=== PATIENT | female | born 1995 | race African-American/Black ===

== ENCOUNTER 2016-08-01 13:47 | Outpatient (CLI) | END 2016-08-01 13:48 | disposition home or self-care (01) | LOC: LAB 13:47 | PROVIDERS: ATTEND Nurse Practitioner Family | DX: R13.10 Dysphagia, unspecified (principal) | CPT/HCPCS: 87651; 87880 ==

== ENCOUNTER 2016-10-04 10:17 | Outpatient (CLI) | END 2016-10-04 10:18 | disposition home or self-care (01) | LOC: LAB 10:17 | PROVIDERS: ATTEND Nurse Practitioner Family | DX: R11.2 Nausea with vomiting, unspecified (principal); R52 Pain, unspecified ==

== ENCOUNTER 2017-02-10 04:35 | Emergency (ER) ==
[2017-02-10 04:49] VITALS: BP 104/66; TEMP 99.3; BMI 23.6
--- NOTE | 2017-02-10 05:38 | DI ---
EXAM: Right ankle, three views, 02/10/2017 HISTORY: Trauma COMPARISON: None. FINDINGS / IMPRESSION: The visualized osseous structures appear intact. Anatomic alignment appears within normal limits. There is no evidence of fracture or dislocation. No acute osseous abnormality.
[2017-02-10] MEDS ORDERED: NORCO 7.5-325 PO STA (05:42)
--- NOTE | 2017-02-10 05:57 | ED.PDOC ---
General ED Provider: Dr. SUNITHA FIELDS-ER Chief Complaint: Ankle Pain/Injury Stated Complaint: i tripped over boots and hurt my ankle Time Seen by Physician: 04:45 Mode of Arrival: Wheelchair Information Source: Patient, Family Exam Limitations: No limitations Nursing and Triage Documentation Reviewed and Agree: Yes Musculoskeletal Complaint Exam - Ankle/Foot Complaint/Exam Location of Injury: Reports: Right, Ankle Mechanism of Injury: Reports: Trauma Onset/Duration: 30 min Symptoms Are: Reports: Still present Onset of Pain: Reports: Immediate Initial Severity: Mild Current Severity: Moderate Location: Reports: Discrete Character: Reports: Dull, Aching, Throbbing, Spasmodic, Stiffness Alleviating: Reports: Rest Aggravating: Reports: Movement, Weight bearing, Prolonged standing Able to Bear Weight: No Associated Signs and Symptoms: Reports: Swelling, Bruising Gout Risk Factors: Reports: None Related Surgical History: Reports: None Lower Extremity Findings: Present: Swelling, Ecchymosis, Tenderness, Limited range of motion Achilles Tendon Abnormality: No Tenderness: Present: Lateral malleolus Limited Range of Motion: Present: Inversion, Eversion, Dorsiflexion Differential Diagnosis: Closed Fracture, Sprain, Strain Review of Systems - Review Of Systems Constitutional: Reports: No symptoms Eyes: Reports: No symptoms Ears, Nose, Mouth, Throat: Reports: No symptoms Respiratory: Reports: No symptoms Cardiac: Reports: No symptoms GI: Reports: No symptoms : Reports: No symptoms Musculoskeletal: Reports: Joint pain, Joint swelling, Muscle pain Skin: Reports: No symptoms Neurological: Reports: No symptoms Endocrine: Reports: No symptoms Hematologic/Lymphatic: Reports: No symptoms All Other Systems: Reviewed and Negative Past Medical History - Past Medical History Previously Healthy: Yes Endocrine: Reports: Unknown Cardiovascular: Reports: Unknown Respiratory: Reports: Unknown Hematological: Reports: Unknown Gastrointestinal: Reports: Unknown Genitourinary: Reports: Unknown Neuro/Psych: Reports: Unknown Musculoskeletal: Reports: Unknown Cancer: Reports: Unknown Last Menstrual Period: now - Surgical History General Surgical History: Reports: Unknown - Family History Family History: Reports: Unknown - Social History Smoking Status: Never smoker, Chews tobacco Hx Substance Use: No Alcohol Screening: None Lives: With family - Immunizations Tetanus Shot up to Date: Yes Physical Exam - Physical Exam Appearance: Well-appearing, No pain distress, Well-nourished Pain Distress: Moderate Eyes: JILLIAN, EOMI, Conjunctiva clear ENT: Ears normal, Nose normal, Oropharynx normal Neck: Supple Respiratory: Airway patent, Breath sounds clear, Breath sounds equal, Respirations nonlabored Cardiovascular: RRR, Pulses normal, No rub, No murmur GI/: Soft, Nontender, No masses, Bowel sounds normal, No Organomegaly Musculoskeletal: Limited ROM Skin: Warm, Dry, Normal color Neurological: Sensation intact, Motor intact, Reflexes intact, Cranial nerves intact, Alert, Oriented Psychiatric: Affect appropriate, Mood appropriate Interpretation - Radiology Interpretation Radiology Interpretation By: Radiologist Radiology Results: Negative Critical Care Note - Critical Care Note Total Time (mins): 0 Course - Course Orders, Labs, Meds: Orders Category Date Time Status Air cast [ED SPLINT APPLICATION] .ONCE EMERGENCY 02/10/17 05:43 Active CRUTCHES [ED CRUTCHES] .ONCE EMERGENCY 02/10/17 05:43 Active ED TRISH WRAP .ONCE EMERGENCY 02/10/17 05:43 Active Hydrocodone Bit/Acetaminophen [[place] 7.5-325] MEDS 02/10/17 05:42 Discontinued 1 tab PO ONCE STA ANKLE, RIGHT MIN 3 VIEWS Stat RADS 02/10/17 04:57 Completed Medications Discontinued Medications Generic Name Dose Route Start Last Admin Trade Name Freq PRN Reason Stop Dose Admin Acetaminophen/Hydrocodone Bitart 1 tab 02/10/17 05:42 02/10/17 05:50 [place] 7.5-325 PO 02/10/17 05:43 1 tab ONCE STA Administration Vital Signs: Temp Pulse Resp BP Pulse Ox 02/10/17 04:36 99.3 F 95 H 22 104/66 98 Departure - Departure Time of Disposition: 06:00 Disposition: HOME SELF-CARE Discharge Problem: Ankle pain Instructions: Ankle Sprain (ED) Condition: Good Pt referred to PMD for follow-up: Yes Additional Instructions: stay with crutches..nonweightbearing...stay in splint--off work 2 days--norco 5mg q 6hrs prn pain #12--ice for 24hrs--f/u with pcp in one week Allergies/Adverse Reactions: Allergies No Known Allergies Allergy (Unverified 02/10/17 04:45) Home Medications: Ambulatory Orders 1 [No Reported Medications] 02/10/17 Disposition Discussed With: Patient, Family
== END 2017-02-10 06:10 | disposition home or self-care (01) ==
LOC: ED 04:35
DX: M25.571 Pain in right ankle and joints of right foot (principal); W18.40XA Slipping, tripping and stumbling without falling, unspecified, initial encounter; F17.220 Nicotine dependence, chewing tobacco, uncomplicated
CPT/HCPCS: 99283

== ENCOUNTER 2017-02-17 12:08 | Outpatient (CLI) ==
--- NOTE | 2017-02-17 13:33 | DI ---
Exam: Three x-rays of the right ankle. Comparison: 02/10/2017. Reason for exam: Pain in right ankle. FINDINGS: No acute fracture or dislocation. The talar dome is intact. There is no widening of the medial or lateral clear spaces. No unexplained calcific soft tissue density or radiopaque retained f oreign body. Impression: No acute fracture or dislocation in the right ankle
--- NOTE | 2017-02-17 13:37 | DI ---
Exam: Three x-rays of the right foot. Comparison: Ankle x-ray performed 02/10/2017. Reason for exam: Fall. FINDINGS: No acute fracture or malalignment. The joint spaces are well maintained. The cortices ar e intact. No unexplained calcific soft tissue densities or radiopaque retained foreign bodies. Impression: No acute fracture or malalignment in the right foot
== END 2017-02-17 12:09 | disposition home or self-care (01) ==
LOC: RAD 12:08
PROVIDERS: ATTEND Nurse Practitioner Family
DX: M25.571 Pain in right ankle and joints of right foot (principal); S99.911S Unspecified injury of right ankle, sequela; M79.671 Pain in right foot; S99.921S Unspecified injury of right foot, sequela

== ENCOUNTER 2017-05-23 16:22 | Outpatient (CLI) | END 2017-05-23 16:23 | disposition home or self-care (01) | LOC: LAB 16:22 | PROVIDERS: ATTEND Nurse Practitioner Family | DX: R05 Cough (principal) | CPT/HCPCS: 87502; 87651 ==

== ENCOUNTER 2017-07-23 16:31 | Outpatient (CLI) | END 2017-07-23 16:32 | disposition home or self-care (01) | LOC: FCC-LAB 16:31 | PROVIDERS: ATTEND Nurse Practitioner Family | DX: D64.9 Anemia, unspecified (principal); J18.9 Pneumonia, unspecified organism | CPT/HCPCS: 36415; 80053; 85025 ==

== ENCOUNTER 2017-07-30 13:47 | Outpatient (CLI) | END 2017-07-30 13:48 | disposition home or self-care (01) | LOC: AMBL 13:47 | PROVIDERS: ATTEND Internal Medicine | DX: O26.852 Spotting complicating pregnancy, second trimester (principal); Z3A.20 20 weeks gestation of pregnancy; R10.30 Lower abdominal pain, unspecified ==

== ENCOUNTER 2018-03-11 16:00 | Outpatient (CLI) ==
--- NOTE | 2018-03-12 09:40 | DI ---
Exam: Chest two-view HISTORY: Hemoptysis. Comparison: 02/04/2010. FINDINGS: Two PA views and a lateral view of the chest demonstrate moderately expanded lungs with no evidence of pneumonia or edema. The heart is normal in size and configuration. The pulmonary vascu lature is not congested. The skeletal structures are intact. IMPRESSION: No acute cardiopulmonary disease.
== END 2018-03-11 16:01 | disposition home or self-care (01) ==
LOC: RAD 16:00
PROVIDERS: ATTEND Nurse Practitioner Family
DX: R04.2 Hemoptysis (principal); J02.9 Acute pharyngitis, unspecified
CPT/HCPCS: 87651

== ENCOUNTER 2018-07-02 22:42 | Emergency (ER) ==
[2018-07-02] MEDS ORDERED: DEMEROL 50 MG/ML VIAL ONE (23:05)
[2018-07-03 01:54] VITALS: BP 120/78
--- NOTE | 2018-07-03 02:06 | ED.PDOC ---
General ED Provider: Dr. CARLOS ROBERTS Chief Complaint: Ankle Pain/Injury Stated Complaint: Patient states she twisted her right ankle and lower leg heard a POP now unable to bear weight. States that the pain is severe. Time Seen by Physician: 23:45 Exam Limitations: No limitations Primary Care Provider: SHALA BENTON Nursing and Triage Documentation Reviewed and Agree: Yes Does patient meet sepsis criteria?: No System Inflammatory Response Syndrome: Not Applicable Sepsis Protocol: For patient's 13 years and over: Temp is 96.8 and below OR 101 and greater Pulse >90 BPM Resp >20/minute Acutely Altered Mental Status Are patient's symptoms suggestive of a new infection, such as: -Pneumonia -Skin, Soft Tissue -Endocarditis -UTI -Bone, Joint Infection -Implantable Device -Acute Abdominal Infection -Wound Infection -Meningitis -Blood Stream Catheter Infection -Unknown Review of Systems - Review Of Systems Constitutional: Reports: No symptoms Eyes: Reports: No symptoms Ears, Nose, Mouth, Throat: Reports: No symptoms Respiratory: Reports: No symptoms Cardiac: Reports: No symptoms GI: Reports: No symptoms : Reports: No symptoms Musculoskeletal: Reports: Joint pain Skin: Reports: No symptoms Neurological: Reports: No symptoms Endocrine: Reports: No symptoms Hematologic/Lymphatic: Reports: No symptoms All Other Systems: Reviewed and Negative Past Medical History - Past Medical History Previously Healthy: Yes Endocrine: Reports: None Cardiovascular: Reports: None Respiratory: Reports: Asthma Hematological: Reports: None Gastrointestinal: Reports: None Genitourinary: Reports: None Neuro/Psych: Reports: None Musculoskeletal: Reports: None Cancer: Reports: None - Surgical History General Surgical History: Reports: None - Family History Family History: Reports: None - Social History Smoking Status: Never smoker, Chews tobacco Hx Substance Use: No Alcohol Screening: None Physical Exam - Physical Exam Appearance: Ill-appearing Ill-appearing: Mild Pain Distress: Severe Neck: Supple Respiratory: Airway patent, Breath sounds clear, Breath sounds equal, Respirations nonlabored Cardiovascular: RRR, Pulses normal, No rub, No murmur GI/: Soft, Nontender, No masses, Bowel sounds normal, No Organomegaly Musculoskeletal: Limited ROM ( right lower leg and ankle.) Skin: Warm, Dry Neurological: Sensation intact, Motor intact, Reflexes intact, Cranial nerves intact, Alert, Oriented Psychiatric: Anxious Critical Care Note - Critical Care Note Total Time (mins): 0 Course - Course Vital Signs: Pulse Resp BP Pulse Ox 07/02/18 23:42 88 15 120/78 99 Departure - Departure Time of Disposition: 23:55 Disposition: HOME SELF-CARE Discharge Problem: Ankle sprain Qualifiers: Encounter type: initial encounter Involved ligament of ankle: unspecified ligament Laterality: right Qualified Code(s): S93.401A - Sprain of unspecified ligament of right ankle, initial encounter Knee sprain Qualifiers: Encounter type: initial encounter Involved ligament of knee: unspecified ligament Laterality: right Qualified Code(s): S83.91XA - Sprain of unspecified site of right knee, initial encounter Condition: Stable Pt referred to PMD for follow-up: Yes IPMP verified?: No Allergies/Adverse Reactions: Allergies No Known Allergies Allergy (Unverified 02/10/17 04:45) Home Medications: Ambulatory Orders Acetaminophen 325 mg PO Q6H PRN 07/21/17 Albuterol Sulfate 0.63 mg IH Q4HR PRN 07/21/17 Disposition Discussed With: Patient
[2018-07-03 03:29] VITALS: TEMP 98.7; BMI 32.5
[2018-07-03] MEDS ORDERED: DEMEROL 50 MG/ML VIAL IM STA (03:31)
[2018-07-03] MEDS ORDERED: PHENERGAN 25 MG/ML VIAL IM STA (03:31)
--- NOTE | 2018-07-03 11:03 | DI ---
EXAM: Three views of the right ankle. History: Right ankle trauma. Comparison: Right ankle radiograph 02/17/2017 Findings: No acute fracture or dislocation. No abnormal calcifications or radiopaque foreign bodies . Joint spaces are preserved. Impression: Unremarkable exam
--- NOTE | 2018-07-03 11:04 | DI ---
EXAM: RIGHT KNEE. HISTORY: Knee pain after fall. FINDINGS: Right knee four view. Articular cartilage width is normal. There is no fracture or joint effusion. Bone density and soft tissues are within normal limits. IMPRESSION: Within normal limits.
== END 2018-07-03 03:30 | disposition home or self-care (01) ==
LOC: ED 22:42
DX: S93.401A Sprain of unspecified ligament of right ankle, initial encounter (principal); S83.91XA Sprain of unspecified site of right knee, initial encounter; X50.1XXA Overexertion from prolonged static or awkward postures, initial encounter; Z72.0 Tobacco use
CPT/HCPCS: 96372; 99282

== ENCOUNTER 2018-08-13 12:57 | Outpatient (CLI) ==
--- NOTE | 2018-08-13 13:22 | DI ---
Exam: Three views of the right ankle. Comparison: 07/02/2018. Reason for exam: Pain in right ankle FINDINGS: No acute fracture or malalignment. The talar dome is intact. No abnormal soft tissue swathi cifications or radiopaque retained foreign bodies are seen. Impression: No acute fracture or dislocation is seen in the right ankle.
== END 2018-08-13 12:58 | disposition home or self-care (01) ==
LOC: RAD 12:57
PROVIDERS: ATTEND Nurse Practitioner Family
DX: M25.571 Pain in right ankle and joints of right foot (principal)

== ENCOUNTER 2018-09-11 15:30 | Outpatient (RCR) ==
--- NOTE | 2018-09-14 16:12 | RS.OPPTEV2 ---
Date of Note: 09/11/18 Visit #: 1 Number of visits approved by Insurance: pending Date of Evaluation: 09/11/18 Payer Source: Medicaid Treatment Diagnosis: Right ankle pain History of Condition/Mechanism of Injury:: Patient reports spraining her ankle ~ two months ago. States she had also sprained it last year, but turned it out rather than turning the foot in with this recent sprain Functional Limitations: Standing, Squatting, Ambulation, Community Access/ Integration (stairs) Current Subjective/complaints:: T'Michelle reports she gets swelling in the right ankle if she is on her feet very long. States the back of the ankle hurts the most. She is not using an assistive device now. She initially using crutches, but does not use anything now. She uses ice and sometimes Epsom salt right ankle/foot. Reports the ankle feels stiff. States she has a air splint she wears sometimes, especially if she is on her feet very long. States she has an eight month old son and is on her feet a lot. Treatment Side (optional): Right Medical History Hx Home Medications: Adderall inhaler Patient's Goals: Her goal is to get relief of right ankle pain. Pain Assessment - Pain Description Pain Location: ankle pain Pain Description: Sharp, Aching Current Pain Intensity: 5/10 Worst Pain Intensity: not quantified Functional Outcome Measure LE Functional Scale: 58 (58/80=27.5% impairment) - G Codes & Severity Modifier G Codes & Modifier: NA Source of G Code score: NA Observation - Observation Inspection: Right ankle presents with no obvious swelling. Does show some puffiness over the metheads of the right foot. In weight bearing position, patient demonstrates optimal longitudinal arch bilaterally. In standing, she maintains most of her weight on the left LE, but can stand with equal weight on LE's for a short time for assessment. Girth Measurement Lower: Malleoli: left 25.5 cm, right 25.5 cm. Metheads: left 23 cm, right 23.5 cm. Figure 8: left 53 cm, right 54 cm Gait - Gait Pattern Gait Comments: Patient ambulates in department without an assistive device. She demonstrates decreased stance phase on the right LE, as well as decreased heel strike and toe off. - Left Ankle ROM Left DF with Knee extension: 12 degrees Left Plantar Flexion: 50 (degrees AROM) Left Eversion: 5 (degrees AROM) Left Inversion: 5 (degrees AROM) Comments: Left forefoot adduction 24 degrees, abduction 8 degrees. - Right Ankle ROM Right DF with Knee extension: -2 degrees Right Plantarflexion: 32 (degrees AROM) Right Eversion: 5 (degrees AROM) Right Inversion: 5 (degrees AROM) Right Ankle/Foot ROM Limitations: Pain Comments: Right forefoot adduction 12 degrees, abduction 5 degrees. PROM: DF to neutral, PF 40 degrees, Inversion 15 degrees, eversion 5. Patient guards right ankle and withdrawals ankle during attempts of ROM. - Left Ankle Strength Left Dorsiflexion: 5 Normal Left Plantar flexion: 5 Normal Left Eversion: 5 Normal Left Inversion: 5 Normal - Right Ankle Strength Right Dorsiflexion: 4- Good- Right Plantarflexion: 3+ Fair+ Right Eversion: 3 Fair Right Inversion: 3 Fair Comments: Patient presents to be unable to hold against resistance to the right ankle due to pain, especially for inversion and eversion MMT. Palpation Comments:: Reports tenderness with palpation to the most inferior two inches of the Achilles tendon on the right foot/ankle. Reports mild tenderness at below the medial malleoli. Sensation - Sensation Right Lower Extremity: Intact/Normal Left Lower Extremity: Intact/Normal Balance - Standing Balance Static Standing Balance: Good Dynamic Standing Balance: Good Additional Comments: Additional Comments: Right ankle presents with no hypermobility or instability. Interventions - Exercise/Activities/Manual Therapy Exercises/Activities: Patient instructed in ankle alphabet and Ankle DF/PF. Advised to ice and elevate the ankle when she can after prolonged weight bearing. Manual Therapy: Na HOME EXERCISE PROGRAM: Ankle alphabet, DF/PF - Charges Timed Code Treatment Minutes: 5 mins Total Treatment Time: 49 mins Procedures billed for this date of service:: EVAL low EVALUATION COMPLEXITY LEVEL EVALUATION COMPLEXITY LEVEL: HISTORY: Low (previous ankle sprain last year), EXAM OF BODY SYSTEMS: Low (gait, ROM, MS, joint stability), CLINICAL PRESENTATION: Low, CLINICAL DECISION MAKING: Low Assessment Assessment: Patient presents to therapy with a diagnosis of acute right ankle pain following an inversion sprain two months ago. She reports pain and swelling with prolonged weight bearing. She exhibits minimal swelling in the right foot. She exhibits significant limitation in right ankle passive and Active ROM. She is very anxious and guarded with ROM and MMT. She demonstrates potential to benefit ROM and strengthening exercises to improve right ankle function and relieve her pain. Patient Education: Education of diagnosis, Body/Joint mechanics, Home Exercise Program, Home Safety, Activity Modification, Education of Plan of Care Rehab Potential: Good Short Term Goals Goal #1: Pt independent and compliant with HEP. Goal to be met by: 09/28/18 Goal #2: Right ankle AROM WFL's. Goal to be met by: 09/28/18 Goal #3: Right ankle strength 4/5. 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 Goal to be met by: 10/19/18 Goal #2: Pt to ambulate community distances with minimal gait deviation. Goal to be met by: 10/19/18 Goal #3: Pt will tolerate prolonged standing and walking with min. right ankle pain. Goal to be met by: 10/19/18 Plan - Treatment to be Provided Procedures: Therapeutic Exercises, Therapeutic Activity, Neuromuscular Rehab, Splinting/Taping, Patient Education Modalities: Electrical Stimulation, Ultrasound/Phonophoresis, Cryotherapy, Hot Packs - Treatment Plan Frequency: 2-3 Duration: 4 weeks Dates of Oil Burner Servicer And Installer Goals: 10/19/18 Expiration date of current Insurance Approval:: pending - Treatment Code (1) Ankle pain Code(s): M25.579 - PAIN IN UNSPECIFIED ANKLE AND JOINTS OF UNSPECIFIED FOOT Qualifiers: Chronicity: acute Laterality: right Qualified Code(s): M25.571 - Pain in right ankle and joints of right foot (2) Ankle sprain Code(s): S93.409A - SPRAIN OF UNSP LIGAMENT OF UNSPECIFIED ANKLE, INIT ENCNTR Qualifiers: Encounter type: subsequent encounter Involved ligament of ankle: unspecified ligament Laterality: right Qualified Code(s): S93.401D - Sprain of unspecified ligament of right ankle, subsequent encounter
--- NOTE | 2018-09-18 14:28 | RS.CXNS ---
Date of scheduled appointment: 09/18/18 Type: No Show
== END 2018-09-22 23:59 ==
PROVIDERS: ATTEND Nurse Practitioner Family
DX: M25.571 Pain in right ankle and joints of right foot (principal)

== ENCOUNTER 2018-10-13 11:00 | Outpatient (RCR) ==
--- NOTE | 2018-09-23 12:04 | RS.CXNS ---
Date of scheduled appointment: 09/23/18 Type: Cancel (Patient calls to cancel appointment. States she is on her way back from her sons doctors appointment. Patient is advised she will be rescheduled one last time, but discharged if she does not attend, per attendance policy.)
--- NOTE | 2018-09-24 12:10 | RS.OPPTDN ---
Subjective Date of Note: 09/24/18 Visit #: 2 Number of visits approved by Insurance: pending Date of Evaluation: 09/11/18 Payer Source: Medicaid Treatment Diagnosis: Right ankle pain Current Subjective/complaints:: Patient reports little to no pain with short distance walking. States pain increases in the right anterior lateral ankle joint and up the ernst with longer distance walking. Reports discomfort with end range stretching. Pain Assessment - Pain Description Pain Location: right anterior lateral ankle Pain Description: Aching Current Pain Intensity: mild Worst Pain Intensity: 6/10 - Treatment Modality: Ultrasound Parameters/Method Applied: [id number] at 1.5w/cm2 to the right anterior lateral ankle joint and up along the line of the distal anterior tibialis prior to EX. Patient Position: Sitting - Heat/Cryotherapy Treatment: Hot Pack ([id number] to the right ankle prior to US and EX. Patient in sitting. ) Interventions - Exercise/Activities/Manual Therapy Exercises/Activities: PROM of the right ankle. Ankle alphabet and ankle DF/PF. Manual resistence for ankle isometrics of df, inversion, and eversion. Instructed patient to work on this at home 4 times per day, using heavy furniture to resist isometrics. Also to resume Epsom salt soaks, alternating with ice to the left ankle with elevation. Patient given copy of new exercises. Total minutes of Exercise: 17mins Manual Therapy: Na HOME EXERCISE PROGRAM: Ankle alphabet, DF/PF, isometric ankle df, inv, and eversion. - Charges Timed Code Treatment Minutes: 27mins Total Treatment Time: 42mins Procedures billed for this date of service:: HP, US, EX Assessment: Patient attentive to all patient education. Patient Education: Education of diagnosis, Body/Joint mechanics, Home Exercise Program, Home Safety, Activity Modification Patient demonstrates compliance with HEP?: Yes Short Term Goals Goal #1: Pt independent and compliant with HEP. Goal to be met by: 09/28/18 Progress towards Goal:: Progressing Goal #2: Right ankle AROM WFL's. Goal to be met by: 09/28/18 Progress towards Goal:: Progressing Goal #3: Right ankle strength 4/5. Goal to be met by: 09/28/18 Park Superintendent Goals Goal #1: Pt knows HEP and to continue ex's to maintain functional level at D/C. Goal to be met by: 10/19/18 Goal #2: Pt to ambulate community distances with minimal gait deviation. Goal to be met by: 10/19/18 Goal #3: Pt will tolerate prolonged standing and walking with min. right ankle pain. Goal to be met by: 10/19/18 Plan Dates of Mcfp Goals: 10/19/18 Expiration date of current Insurance Approval:: 10/19/18 PLAN: Continue modalities and progress exercise to reduce pain and increase functional ambulation and activity level.
--- NOTE | 2018-09-28 13:12 | RS.OPPTDN ---
Subjective Date of Note: 09/28/18 Visit #: 3 Number of visits approved by Insurance: pending Date of Evaluation: 09/11/18 Payer Source: Medicaid Treatment Diagnosis: Right ankle pain Current Subjective/complaints:: Patient reports soreness after last session, but feels she is doing better. Reports pain varies depending on activity level. States she can walk short distances in her home and community without an increase in pain. Pain Assessment - Pain Description Pain Location: right ankle Current Pain Intensity: 2-3/10 Worst Pain Intensity: 6-7/10 - Treatment Modality: Ultrasound Parameters/Method Applied: [id number] at 1.5w/cm2 to the right anterior ankle, along line of the ant tibialis, and achilles tendon. Patient Position: Sitting - Heat/Cryotherapy Treatment: Hot Pack ([id number] to the right ankle prior to Estim and EX. Pt in sitting. ) Interventions - Exercise/Activities/Manual Therapy Exercises/Activities: PROM of the right ankle. Ankle DF/PF. Manual resistence for ankle isometrics of df, inversion, and eversion. Began yellow theraband for resisted right ankle df, inversion, and eversion, 4s/5reps each. Ankle alphabet. Patient given yellow theraband for HEP. Total minutes of Exercise: 14mins Manual Therapy: Na HOME EXERCISE PROGRAM: Ankle alphabet, DF/PF, isometric ankle df, inv, and eversion. - Charges Timed Code Treatment Minutes: 26mins Total Treatment Time: 46mins Procedures billed for this date of service:: HP, US, EX Assessment: Patient progressing with exercise. Patient Education: Body/Joint mechanics, Home Exercise Program, Activity Modification Patient demonstrates compliance with HEP?: Yes Short Term Goals Goal #1: Pt independent and compliant with HEP. Goal to be met by: 09/28/18 Progress towards Goal:: Progressing Goal #2: Right ankle AROM WFL's. Goal to be met by: 09/28/18 Progress towards Goal:: Met Goal #3: Right ankle strength 4/5. Goal to be met by: 09/28/18 Progress towards Goal:: Progressing Shelter Goals Goal #1: Pt knows HEP and to continue ex's to maintain functional level at D/C. Goal to be met by: 10/19/18 Goal #2: Pt to ambulate community distances with minimal gait deviation. Goal to be met by: 10/19/18 Goal #3: Pt will tolerate prolonged standing and walking with min. right ankle pain. Goal to be met by: 10/19/18 Plan Dates of Teacher Vocal Goals: 10/19/18 Expiration date of current Insurance Approval:: 10/19/18 PLAN: Continue modalities and progress with ROM and strengthening exercise.
--- NOTE | 2018-10-01 15:52 | RS.OPPTDN ---
Subjective Date of Note: 10/01/18 Visit #: 4 Number of visits approved by Insurance: pending Date of Evaluation: 09/11/18 Payer Source: Medicaid Treatment Diagnosis: Right ankle pain Current Subjective/complaints:: Patient reports soreness right foot and along achilles tendon, but feels she is walking better. States she worked-out this week and right foot/ankle had increased swelling. Pain Assessment - Pain Description Pain Location: right lateral ankle and along achilles tendon Current Pain Intensity: mild to mod - Treatment Modality: Ultrasound Parameters/Method Applied: [id number] at 1.5w/cm2 to the right anterior lateral ankle joint, along distal ant tibialis, and along achilles tendon prior to EX. Patient Position: Sitting - Heat/Cryotherapy Treatment: Hot Pack ([id number] to right foot and ankle prior to US and EX. Patient in sitting. ) Interventions - Exercise/Activities/Manual Therapy Exercises/Activities: PROM of the right ankle. Ankle DF/PF. Isometrics of df, inversion, and eversion, multiple reps with manual therapy. Increased to red theraband for resisted right ankle df, inversion, and eversion, 4s/5reps each. Patient given red theraband to progress in HEP. Total minutes of Exercise: 17mins Manual Therapy: Na HOME EXERCISE PROGRAM: Ankle alphabet, DF/PF, isometric ankle df, inv, and eversion. Red theraband resisited ankld df, inversion, eversion. - Charges Timed Code Treatment Minutes: 27mins Total Treatment Time: 47mins Procedures billed for this date of service:: HP, US, EX Assessment: Patient progressing with strengthening. Patient Education: Body/Joint mechanics, Home Exercise Program, Home Safety, Activity Modification Patient demonstrates compliance with HEP?: Yes Short Term Goals Goal #1: Pt independent and compliant with HEP. Goal to be met by: 09/28/18 Progress towards Goal:: Progressing Goal #2: Right ankle AROM WFL's. Goal to be met by: 09/28/18 Progress towards Goal:: Met Goal #3: Right ankle strength 4/5. Goal to be met by: 09/28/18 Progress towards Goal:: Progressing [employer] Goals Goal #1: Pt knows HEP and to continue ex's to maintain functional level at D/C. Goal to be met by: 10/19/18 Goal #2: Pt to ambulate community distances with minimal gait deviation. Goal to be met by: 10/19/18 Progress towards goal: Progressing Goal #3: Pt will tolerate prolonged standing and walking with min. right ankle pain. Goal to be met by: 10/19/18 Progress towards goal: Progressing Plan Dates of [employer] Goals: 10/19/18 Expiration date of current Insurance Approval:: 10/19/18 PLAN: Progress strengthening to reduce pain and increase functional ambulation.
--- NOTE | 2018-10-06 11:52 | RS.CXNS ---
Date of scheduled appointment: 10/06/18 Type: No Show
--- NOTE | 2018-10-08 16:27 | RS.OPPTDN ---
Subjective Date of Note: 10/08/18 Visit #: 5 Number of visits approved by Insurance: pending Date of Evaluation: 09/11/18 Payer Source: Medicaid Treatment Diagnosis: Right ankle pain Current Subjective/complaints:: Patient reports pain has improved and she is working on HEP. Pain Assessment - Pain Description Pain Location: right superior lateral ankle, distal achilles tendon Current Pain Intensity: mild to mod - Treatment Modality: Ultrasound Parameters/Method Applied: [id number] at 1.5w/cm2 to the right lateral ankle joint , along distal ant tibialis, and along distal achilles tendon prior to EX. Patient Position: Sitting - Heat/Cryotherapy Treatment: Hot Pack ([id number] to the right ankle prior to US and EX. Patient in sitting. ) Interventions - Exercise/Activities/Manual Therapy Exercises/Activities: PROM of the right ankle. Ankle DF/PF. Passive heel cord stretching. Isometrics of df, inversion, and eversion, multiple reps with manual therapy. Increased to blue theraband for resisted right ankle df, inversion, and eversion, 3s/10reps each. AROM right ankle in straight planes and circles. Patient given blue theraband to progress in HEP. Total minutes of Exercise: 17mins Manual Therapy: Na HOME EXERCISE PROGRAM: Ankle alphabet, DF/PF, isometric ankle df, inv, and eversion. Red theraband resisited ankld df, inversion, eversion. - Charges Timed Code Treatment Minutes: 29mins Total Treatment Time: 44mins Procedures billed for this date of service:: HP, US, EX Assessment: Patient progressing well and increasing strength of the right ankle. Patient Education: Body/Joint mechanics, Home Exercise Program Patient demonstrates compliance with HEP?: Yes Short Term Goals Goal #1: Pt independent and compliant with HEP. Goal to be met by: 09/28/18 Progress towards Goal:: Progressing Goal #2: Right ankle AROM WFL's. Goal to be met by: 09/28/18 Progress towards Goal:: Met Goal #3: Right ankle strength 4/5. 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 Goal to be met by: 10/19/18 Progress towards goal: Progressing Goal #2: Pt to ambulate community distances with minimal gait deviation. Goal to be met by: 10/19/18 Progress towards goal: Met Goal #3: Pt will tolerate prolonged standing and walking with min. right ankle pain. Goal to be met by: 10/19/18 Progress towards goal: Progressing Plan Dates of Promotion Producer Goals: 10/19/18 Expiration date of current Insurance Approval:: 10/19/18 PLAN: Continue modalities and progress strengthening/stability exercise to reduce pain and increase functional activity level.
--- NOTE | 2018-10-13 14:56 | RS.OPPTDN ---
Subjective Date of Note: 10/13/18 Visit #: 6 Number of visits approved by Insurance: pending Date of Evaluation: 09/11/18 Payer Source: Medicaid Treatment Diagnosis: Right ankle pain Current Subjective/complaints:: Patient reports right ankle is doing much better. States she is walking better and ankle feels stronger. Pain Assessment - Pain Description Pain Location: right upper lateral ankle joint and distal achilles tendon Current Pain Intensity: mild - Treatment Modality: Ultrasound Parameters/Method Applied: [id number] at 1.5w/cm2 to the lateral right ankle joint and along achilles tendon. Patient Position: Sitting - Heat/Cryotherapy Treatment: Hot Pack ([id number] to right ankle. Pt sitting. ) Interventions - Exercise/Activities/Manual Therapy Exercises/Activities: PROM of the right ankle. Ankle DF/PF. Passive heel cord stretching. Isometrics of df, inversion, and eversion, multiple reps with manual therapy. Blue theraband for resisted right ankle df, inversion, and eversion, 3s/10reps each. AROM right ankle in straight planes and circles. Patient education of joint mechanics and progression of resistive exercises. Patient given additional therabands for HEP. Total minutes of Exercise: 19mins Manual Therapy: Na HOME EXERCISE PROGRAM: Ankle alphabet, DF/PF, isometric ankle df, inv, and eversion. Red theraband resisited ankld df, inversion, eversion. - Objective Findings Observations,measurements,etc.: Right ankle ROM WFL. Right ankle 4+/5 MMT - Charges Timed Code Treatment Minutes: 29mins Total Treatment Time: 52mins Procedures billed for this date of service:: HP, US, EX Assessment: Patient has progressed well with ROM and strengthening of the right ankle. Patient has met all treatment goals and will continue HEP following discharge. Patient Education: Education of diagnosis, Body/Joint mechanics, Home Exercise Program, Home Safety, Education of Plan of Care Patient demonstrates compliance with HEP?: Yes Short Term Goals Goal #1: Pt independent and compliant with HEP. Goal to be met by: 09/28/18 Progress towards Goal:: Met Goal #2: Right ankle AROM WFL's. Goal to be met by: 09/28/18 Progress towards Goal:: Met Goal #3: Right ankle strength 4/5. Goal to be met by: 09/28/18 Progress towards Goal:: Met [employer] Goals Goal #1: Pt knows HEP and to continue ex's to maintain functional level at D/C. Goal to be met by: 10/19/18 Progress towards goal: Met Goal #2: Pt to ambulate community distances with minimal gait deviation. Goal to be met by: 10/19/18 Progress towards goal: Met Goal #3: Pt will tolerate prolonged standing and walking with min. right ankle pain. 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
--- NOTE | 2018-10-13 15:45 | RS.QUICKDC ---
Discharge from PT Date of Discharge: 10/13/18 Number of Visits: 6 Reason for Discharge: Patient has progressed with ROM and strengthening of the right ankle. She has met all 6 treatment goals and is independent with HEP. Discharge at this time.
== END 2018-10-23 23:59 ==
PROVIDERS: ATTEND Nurse Practitioner Family
DX: M25.571 Pain in right ankle and joints of right foot (principal)